=== PATIENT | female | born 1970 | race Hispanic/Latino ===

== ENCOUNTER → 2016-07-25 | Outpatient (CLI) | payer OTHER ==
[~2016-07-25] MED LIST: /AMIT10TA PO; BENA25TA4 PO; CALC600T21 PO; HYDR-3713 PO; HYDR-3716 PO; HYDR-3719 PO; HYDR25T PO; HYDR5TAB23 PO; OXYC30TA4 PO; VITA1CAP7 PO; ZYRT10CA PO; [UNRECOGNIZED DRUG - OTHER] TOP
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
== END ==
LOC: M PAIN 14:00
PROVIDERS: ATTEND Nurse Practitioner Family
DX: Z09 Encounter for follow-up examination after completed treatment for conditions other than malignant neoplasm (principal); M54.2 Cervicalgia; M79.1 Myalgia; J30.2 Other seasonal allergic rhinitis; F17.200 Nicotine dependence, unspecified, uncomplicated; Z79.891 Long term (current) use of opiate analgesic

== ENCOUNTER → 2016-10-03 | Outpatient (CLI) | payer OTHER ==
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
== END ==
LOC: M PAIN 14:20
PROVIDERS: ATTEND Nurse Practitioner Family
DX: Z09 Encounter for follow-up examination after completed treatment for conditions other than malignant neoplasm (principal); M54.2 Cervicalgia; M79.1 Myalgia; J30.9 Allergic rhinitis, unspecified; Z79.891 Long term (current) use of opiate analgesic

== ENCOUNTER → 2016-11-21 | Outpatient (CLI) | payer OTHER ==
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
== END | disposition home or self-care (01) ==
LOC: M PAIN 14:00
PROVIDERS: ATTEND Nurse Practitioner Family
DX: G89.29 Other chronic pain (principal); M54.2 Cervicalgia; M79.1 Myalgia; J30.9 Allergic rhinitis, unspecified; F17.210 Nicotine dependence, cigarettes, uncomplicated

== ENCOUNTER → 2017-02-06 | Outpatient (CLI) | payer OTHER, SELFPAY ==
[~2017-02-06] MED LIST changes: -CALC600T21 PO; +CALC600T60 PO; +HYDR-3363 PO; -HYDR25T PO
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
== END ==
LOC: M PAIN 13:40
PROVIDERS: ATTEND Nurse Practitioner Family
DX: G89.29 Other chronic pain (principal); M54.2 Cervicalgia; M79.1 Myalgia; J30.2 Other seasonal allergic rhinitis; Z79.891 Long term (current) use of opiate analgesic; Z87.442 Personal history of urinary calculi

== ENCOUNTER → 2017-06-14 | Outpatient (CLI) | payer OTHER | LOC: M PAIN 14:00 | DX: G89.29 Other chronic pain (principal); M50.20 Other cervical disc displacement, unspecified cervical region; F17.210 Nicotine dependence, cigarettes, uncomplicated; J30.2 Other seasonal allergic rhinitis; Z87.442 Personal history of urinary calculi; Z79.891 Long term (current) use of opiate analgesic | CPT/HCPCS: G0463 ==

== ENCOUNTER → 2017-09-14 | Outpatient (CLI) | payer OTHER, SELFPAY | LOC: M PAIN 14:30 | DX: M54.2 Cervicalgia (principal); Z79.891 Long term (current) use of opiate analgesic; F17.210 Nicotine dependence, cigarettes, uncomplicated; J30.2 Other seasonal allergic rhinitis | CPT/HCPCS: G0463 ==

== ENCOUNTER → 2017-12-07 | Outpatient (CLI) | payer SELFPAY, OTHER | LOC: M PAIN 13:30 | DX: M50.20 Other cervical disc displacement, unspecified cervical region (principal); F17.210 Nicotine dependence, cigarettes, uncomplicated; J30.2 Other seasonal allergic rhinitis; Z79.891 Long term (current) use of opiate analgesic | CPT/HCPCS: G0463 ==

== ENCOUNTER → 2018-04-16 | Outpatient (CLI) | payer SELFPAY, OTHER | LOC: M PAIN 13:00 | DX: M50.20 Other cervical disc displacement, unspecified cervical region (principal); F17.210 Nicotine dependence, cigarettes, uncomplicated; J30.2 Other seasonal allergic rhinitis; Z79.891 Long term (current) use of opiate analgesic | CPT/HCPCS: G0463 ==